=== PATIENT | male | born 1990 | race Caucasian/White ===

== ENCOUNTER 2019-04-17 00:13 | Emergency (ER) | payer OTHER ==
[~2019-04-17] VITALS: Ht 180.3 cm; Wt 66.5 kg
[2019-04-17] MEDS ORDERED: HYDROcodone/APAP 5/325 TABLET ONE (00:54)
[2019-04-17] MEDS ORDERED: HYDROcodone/APAP 5/325 TABLET PO ONE (01:00)
[2019-04-17 02:00] VITALS: BP 110/72
== END 2019-04-17 02:32 | disposition home or self-care (01) ==
LOC: ED 01:13
DX: S62.314A Displaced fracture of base of fourth metacarpal bone, right hand, initial encounter for closed fracture (principal); S62.316A Displaced fracture of base of fifth metacarpal bone, right hand, initial encounter for closed fracture; W50.0XXA Accidental hit or strike by another person, initial encounter; Y93.89 Activity, other specified; Y92.410 Unspecified street and highway as the place of occurrence of the external cause; Y99.8 Other external cause status
CPT/HCPCS: 29125; 99283